=== PATIENT | female | born 2000 | race Two or more races ===

== ENCOUNTER 2025-03-05 12:37 | Day surgery (SDC) | payer MEDICAID, SELFPAY ==
[2025-03-04 11:51] VITALS: BMI 28.6
[2025-03-04 12:29] LABS: HCG Qualitative,Urine Negative
[2025-03-05] VITALS (7 sets, daily range): BP systolic 116–135; BP diastolic 72–88; PULSE 63–104; RESP 13–20; TEMP 36.6–36.8; O2SAT 97–100; BMI 27.6
[2025-03-05] MEDS: OXYMETAZOLINE NAS SPRY 0.05% 15 ML BTL NASAL (13:01)
[2025-03-05] MEDS: RINGERS LACTATED 1000 ML 1,000 ML 20 ML IV (13:02)
--- NOTE | 2025-03-05 13:50 | ESOP_ITS ---
Date of Procedure 03/05/25 Pre Op Diagnosis Nasal septal deviation with obstruction Left inferior turbinate hypertrophy Post Op Diagnosis Nasal septal deviation with obstruction Left inferior turbinate hypertrophy Procedure Intranasal septoplasty Submucous resection of the left inferior turbinate Findings Deviated septum to the right with spurring to the left along the floor as well as spur to the right posteriorly. Left inferior turbinate was enlarged. Procedure Description Is a 24-year-old female with chronic nasal congestion despite medical therapy. Treatment options were discussed as well as surgical risk she wished to proceed with surgical intervention. Patient was transferred to the operative suite where she is anesthetized per LMA. Patient was sterilely draped and a timeout performed. Nasal septum as well as the left inferior turbinate were injected with 1% lidocaine with 1 100,000 dilution epinephrine. Caudal rim incision was made on the left side of the septum and a mucosal flap off the cartilage and bone. Inferior tunnel was created as well. The perpendicular plate was from the quadrangular cartilage and mucosal flap elevated off the right side in doing so a tear was created posteriorly over the spur. Perpendicular plate was incised double- action scissors and removed with Boyd forceps. The spur was fractured over the caudal elevator and removed with a Boyd forceps. The cartilaginous spur inferiorly was removed with the caudal elevator on the left side. This allowed the septum return near midline. The mucosal flaps were reapproximated with a 4-0 plain gut suture in a quilting type stitch and this was used to close the rim incision as well. Left inferior turbinate was then reduced in submucosal plane with the turbinate shaver dissection was performed on insertion and withdrawal. Entry site was then cauterized with suction cautery. Patient was awakened and taken recovery room in stable condition Anesthesia other (General Per LMA) Pathology / specimen None Estimated Blood Loss 5 Surgeon Jones Valenzuela DO Surgical Staff Operation Date: 03/05/25 14:45 <No data on this case meets the specified criteria>
--- NOTE | 2025-03-05 13:55 | SUR.PHASEI ---
pt received from OR in recovery bay 1. pt asleep but responds to voice, breathing unlabored on room air. v/s stable. pt dressing to nasal area cdi. report received from Dr. Kerns and Charlotte POSEY.
--- NOTE | 2025-03-05 14:50 | SUR.PHASEII ---
pt awake and alert, breathing unlabored on room air. v/s stable. pt dressing to nasal area cdi. pt able to ambulate to wheelchair with steady gait. d/c instructions given with sister Chinedu in room, all questions answered. pt dc/ via wheelchair with all belongings.
== END 2025-03-05 14:50 | disposition home or self-care (01) ==
PROVIDERS: PCP Family Medicine; Referring Provider Otolaryngology; Visit Provider Otolaryngology
PROC: (CPT 30520; principal; 2025-03-05 14:30)
DX: J34.2 Deviated nasal septum (principal); J34.3 Hypertrophy of nasal turbinates
CPT/HCPCS: 30520; 30140; 81025; A4217; A4649; J0131; J0690; J1100; J2250; J2371; J2704; J2765; J3010; J3490; J7040; J7120; A9270